=== PATIENT | female | born 1995 | race Two or more races ===

== ENCOUNTER 2019-08-01 23:31 | Emergency (ER) | payer SELFPAY ==
[~2019-08-01] VITALS: Ht 144.8 cm; Wt 40.8 kg
[2019-08-02] MEDS ORDERED: ACETAMINOPHEN 500 MG TAB PO ONE (01:45)
[2019-08-02] MEDS ORDERED: IBUPROFEN 800 MG TAB PO ONE (01:45)
[2019-08-02 02:32] VITALS: BP 151/99
== END 2019-08-02 02:33 | disposition home or self-care (01) ==
LOC: EDBD 23:31 → ER 23:34
DX: S43.402A Unspecified sprain of left shoulder joint, initial encounter (principal); S93.602A Unspecified sprain of left foot, initial encounter; V43.52XA Car driver injured in collision with other type car in traffic accident, initial encounter; Y93.89 Activity, other specified; Y99.8 Other external cause status; Y92.410 Unspecified street and highway as the place of occurrence of the external cause
CPT/HCPCS: 73030; 73630

== ENCOUNTER → 2019-10-07 | Emergency (ER) | payer SELFPAY ==
[~2019-10-07] VITALS: Ht 144.8 cm; Wt 40.8 kg
[~2019-10-07] MED LIST: POTASSIUM CHL 20 Meq TABLET PO ONE; hydrOXYzine 25 MG TAB or CAP PO ONE
[2019-10-07 16:42] LABS: Basophils # (auto) 0 10 ^3/uL (0-0.2); Basophils % (auto) 0.5 % (0.0-2.0); Eosinophils # (auto) 0 10 ^3/uL (0-0.8); Eosinophils % (auto) 0.4 % (0.0-7.0); Hematocrit 37.7 % (36.0-46.0); Hemoglobin 12.9 g/dL (12.2-16.2); Lymphocytes # (auto) 2.6 10 ^3/uL (0.4-5.4); Lymphocytes % (auto) 33.4 % (10.0-50.0); Mean Corpuscular Hemoglobin 31.6 pg (28.0-32.0); Mean Corpuscular Hgb Conc. 34.2 g/dL (32.0-36.0); Mean Corpuscular Volume 92.4 fL (80.0-100.0); Monocytes # (auto) 0.6 10 ^3/uL (0-1.3); Monocytes % (auto) 7.1 % (0.0-12.0); Neutrophils # (auto) 4.6 10 ^3/uL (1.6-8.6); Neutrophils % (auto) 58.6 % (37.0-80.0); Nucleated Red Blood Cells % 0.1 %; Platelet Count (auto) 305 10^3/uL (140-450); Red Blood Cells 4.09 10^6/uL (4.0-5.20); Red Cell Distribution Width 13.7 % (11.8-14.3); White Blood Cell 7.8 10^3/uL (4.4-10.8)
[2019-10-07 17:00] LABS: Alanine Aminotransferase 25 U/L (13-56); Albumin 4.3 g/dL (3.4-5.0); Anion Gap 10 (5-15); Aspartate Aminotransferase 23 U/L (15-37); BUN/Creatinine Ratio 15.9; Blood Urea Nitrogen 10 mg/dL (7-18); Calcium 8.8 mg/dL (8.5-10.1); Carbon Dioxide 21 mmol/L (21-32); Chloride 107 mmol/L (98-107); GFR African American 148 mL/min; GFR Non-African American 122 mL/min; Glucose 91 mg/dL (74-106); Potassium 3.2 mmol/L (3.5-5.1); Sodium 138 mmol/L (136-145)
[2019-10-07 17:01] LABS: Amphetamine Screen, Urine NEGATIVE (NEGATIVE); Barbiturate Scree,Urine NEGATIVE (NEGATIVE); Benzodiazephine Screen, Urine NEGATIVE (NEGATIVE); Cannabinoid Screen, Urine POSITIVE (NEGATIVE); Cocaine Screen, Urine NEGATIVE (NEGATIVE); Opiate Scree,Urine NEGATIVE (NEGATIVE); Phencyclidine Screen, Urine NEGATIVE (NEGATIVE)
[2019-10-07 17:06] LABS: Alkaline Phosphatase 66 U/L (45-117); Bilirubin, Total 0.8 mg/dL (0.2-1.0); Total Protein 7.8 g/dL (6.4-8.2)
[2019-10-07 17:17] LABS: Urine Bacteria FEW /hpf (None Seen); Urine Blood Negative /uL (Negative); Urine Mucus FEW (None Seen); Urine Specific Gravity 1.025 (1.001-1.035); Urine WBC <1 /hpf (0 - 5)
[2019-10-07 18:25] VITALS: BP 118/77
== END | disposition home or self-care (01) ==
LOC: ER 16:04
DX: F41.0 Panic disorder [episodic paroxysmal anxiety] (principal); Z71.51 Drug abuse counseling and surveillance of drug abuser
CPT/HCPCS: 36415; 71046; 80053; 80307; 81001; 84443; 84484; 84702; 85025; 93005